=== PATIENT | female | born 1965 | race Caucasian/White ===

== ENCOUNTER 2016-11-05 13:52 | Emergency (ER) | payer OTHER ==
[~2016-11-05] VITALS: Ht 167.6 cm; Wt 63.5 kg
[~2016-11-05 13:52] MED LIST: CALC500T13 PO; HYDR-3326 PO
--- NOTE | 2016-11-05 13:52 | NUR ---
bb self for headache and nausea since this am. nad noted. pt aao x4, amb with steady gait. vss. rr even and unlabored. md at bedside for eval.
[2016-11-05] MEDS ORDERED: KETOROLAC TROMETHAMINE INJ 30 MG/ML VIAL ONE (14:16)
[2016-11-05] MEDS ORDERED: diphenhydrAMINE HCL 50 MG/ML VIAL ONE (14:16)
[2016-11-05] MEDS ORDERED: IV NS 0.9% 1,000 ML ONE (14:16)
[2016-11-05] MEDS ORDERED: METOCLOPRAMIDE HCL 10 MG/2 ML VIAL ONE (14:16)
[2016-11-05] MEDS ORDERED: IV SET PRIMARY 1 EA INFUS.SET MC ONE (14:16)
[2016-11-05] MEDS ORDERED: METOCLOPRAMIDE HCL 10 MG/2 ML VIAL IV ONE (14:30)
[2016-11-05] MEDS ORDERED: KETOROLAC TROMETHAMINE INJ 30 MG/ML VIAL IV ONE (14:30)
[2016-11-05] MEDS ORDERED: IV NS 0.9% 1,000 ML BAG IV ONE (14:30)
[2016-11-05] MEDS ORDERED: diphenhydrAMINE HCL 50 MG/ML VIAL IV ONE (14:30)
[2016-11-05 15:00] VITALS: BP 115/79
== END 2016-11-05 15:09 | disposition home or self-care (01) ==
LOC: ER 13:56
DX: G43.909 Migraine, unspecified, not intractable, without status migrainosus (principal)
CPT/HCPCS: 96361; 96374; 96375; 99284; A4606; J1200; J1885; J2765; J7030; Z7610

== ENCOUNTER 2017-11-21 13:12 | Emergency (ER) | payer MEDICAID, OTHER ==
[~2017-11-21 13:12] MED LIST changes: -HYDR-3326 PO; +HYDR-3974 PO
[2017-11-21] MEDS ORDERED: IV NS 0.9% 1,000 ML BAG IV ONE (13:30)
== END 2017-11-21 15:29 | disposition home or self-care (01) ==
DX: R53.81 Other malaise (principal); G43.909 Migraine, unspecified, not intractable, without status migrainosus; Z98.890 Other specified postprocedural states

== ENCOUNTER 2021-04-07 15:48 | Emergency (ER) | payer MEDICAID ==
[~2021-04-07] VITALS: Ht 167.6 cm; Wt 72.6 kg
--- NOTE | 2021-04-07 16:00 | NUR ---
PATIENT [id number], C/O RIGHT FOOT PAIN & MYESHA. HAND ABRASIONS S/P FALL IN FRONT OF A STORE PARKING LOT. -KO. PATIENT ALERT AND ORIENTED X4. NO RESPIRATORY DISTRESS NOTED. RESPIRATIONS EVEN AND UNLABORED. AWAITING MD MCKEON.
[2021-04-07] MEDS ORDERED: IBUPROFEN 600 MG TABLET ONE (16:17)
[2021-04-07] MEDS ORDERED: IBUP-1955 PO (16:30)
[2021-04-07] MEDS ORDERED: IBUPROFEN 600 MG TABLET PO ONE (16:30)
--- NOTE | 2021-04-07 16:48 | NUR ---
Patient started to c/o L knee pain. made aware
--- NOTE | 2021-04-07 16:54 | NUR ---
radiology at bedside to xray L knee.
[2021-04-07 17:32] VITALS: BP 118/72
--- NOTE | 2021-04-07 17:32 | NUR ---
Patient discharged to home in stable condition. Written and verbal after care instructions given. Patient verbalizes understanding of instruction.
== END 2021-04-07 17:34 | disposition home or self-care (01) ==
LOC: ER 16:01
DX: M79.642 Pain in left hand (principal); M79.641 Pain in right hand; M79.671 Pain in right foot; M25.562 Pain in left knee; G43.909 Migraine, unspecified, not intractable, without status migrainosus; Z98.890 Other specified postprocedural states; Z79.899 Other long term (current) drug therapy
CPT/HCPCS: 73130-TC; 73564-TC; 73630-TC

== ENCOUNTER 2023-06-17 11:52 | Emergency (ER) | payer SELFPAY ==
[~2023-06-17] VITALS: Ht 167.6 cm; Wt 74.8 kg
[~2023-06-17 11:52] MED LIST changes: +IBUP-1955 PO
[2023-06-17 12:29] VITALS: BP 142/94; TEMP 98.2
[2023-06-17] MEDS ORDERED: IBUP-1955 PO (14:01)
[2023-06-17 14:12] VITALS: O2SAT 98
== END 2023-06-17 14:15 | disposition home or self-care (01) ==
LOC: ER 11:54
DX: M62.838 Other muscle spasm (principal); S49.81XA Other specified injuries of right shoulder and upper arm, initial encounter; G43.909 Migraine, unspecified, not intractable, without status migrainosus; Z79.899 Other long term (current) drug therapy; Z98.890 Other specified postprocedural states; Y04.8XXA Assault by other bodily force, initial encounter; Y93.89 Activity, other specified; Y92.89 Other specified places as the place of occurrence of the external cause; Y99.8 Other external cause status
CPT/HCPCS: 73030-TC; 73060-TC; 73090-TC

== ENCOUNTER 2023-07-02 09:48 | Emergency (ER) | payer MEDICAID ==
[~2023-07-02] VITALS: Ht 167.6 cm; Wt 74.4 kg
[2023-07-02] MEDS ORDERED: NAPR-1009 PO (10:45)
[2023-07-02 10:54] VITALS: BP 124/78; TEMP 98; O2SAT 97
== END 2023-07-02 11:02 | disposition home or self-care (01) ==
LOC: ER 09:54
DX: S49.81XA Other specified injuries of right shoulder and upper arm, initial encounter (principal); G43.909 Migraine, unspecified, not intractable, without status migrainosus; Z98.890 Other specified postprocedural states; Z79.899 Other long term (current) drug therapy; Y08.89XA Assault by other specified means, initial encounter; Y93.89 Activity, other specified; Y92.89 Other specified places as the place of occurrence of the external cause; Y99.8 Other external cause status
CPT/HCPCS: 73030-TC; 73060-TC